=== PATIENT | male | born 1955 | race Caucasian/White ===

== ENCOUNTER 2022-12-12 06:34 | Outpatient (OUT) | payer MEDICARE, OTHER, SELFPAY ==
[2022-12-12 07:28] LABS: Estimated GFR (African America 60 (>=60); Estimated GFR (Non-African Ame 49 (>=60)
--- NOTE | 2022-12-12 08:33 | CT_ITS ---
[address] [address] Patient Name: NIHARIKA OH MRN: [id number] date: 1955 Sex: M Assigned Patient Location: LAB Current Patient Location: LAB Accession/Order Number: [id number] Exam Date: 12/12/2022 08:40 Report Date: 12/12/2022 09:41 At the request of: NON-STAFF PHYSICIAN Procedure: CT abdomen pelvis w con CT abdomen pelvis w con, 12/12/2022 8:40 AM EDT INDICATION: Disorder Of Kidney Left renal mass. COMPARISON: Contrast-enhanced CT scan of the abdomen and pelvis 10/21/2021, 03/15/2021. TECHNIQUE: Axial images of the abdomen and pelvis were obtained after the administration of oral and IV contrast with multiphase imaging. Multiplanar reformatted images were generated and reviewed as needed. Dose reduction techniques were achieved by using automated exposure control and/or adjustment of mA and/or kV according to patient size and/or use of iterative reconstruction technique. FINDINGS: Subsegmental atelectasis/scar within the lingula. No lobar consolidation or effusion. Cholecystectomy. Calcified splenic granulomas. The liver, pancreas and adrenals are unremarkable. Symmetric nephrograms without evidence of obstruction. Right kidney stable in appearance. 2.2 x 2.5 x 1.7 cm dense nodule upper pole the left kidney, previously 2.3 x 2.1 x 2.1 cm. Cyst lower pole the left kidney. No urolithiasis. Delayed imaging demonstrates symmetric excretion into the collecting system bilaterally. Normal course and caliber of the ureters with prompt emptying into the urinary bladder. 3.0 cm urinary bladder diverticulum above the right UVJ, previously 3.1 cm. No urinary bladder wall thickening or perivesicular fat stranding. Central calcifications within a mildly enlarged prostate gland. No aortic aneurysm. No bowel obstruction or acute focal inflammation. Normal appendix. Sigmoid diverticulosis. Right inguinal hernia containing nonobstructed loops of distal ileum. No pneumatosis, pneumoperitoneum or ascites. No mesenteric or retroperitoneal lymphadenopathy. No acute fracture or dislocation. CT/CT abdomen pelvis w con IMPRESSION: 1. Slight interval increase in size of dense mass upper pole of the left kidney. This lesion cannot be fully characterized without concurrent noncontrast scan to assess for enhancement of this nodule. Although this may represent a hemorrhagic cyst, the appearance is concerning for renal cell carcinoma. This may be further evaluated with concurrent pre and postcontrast CT scan with IV contrast in the nephrographic phase or contrast-enhanced MRI. 2. Mild prostatomegaly. 3. Right Hutch diverticulum. No findings to suggest diverticulitis. 4. Sigmoid diverticulosis. 5. Moderate-sized right inguinal hernia. No inflammation within the hernia sac. Electronically authenticated by: BRANDEN KIM Date: 12/12/2022 09:41
== END 2022-12-12 06:35 | disposition home or self-care (01) ==
PROVIDERS: PCP Family Medicine
DX: N28.89 Other specified disorders of kidney and ureter (principal); N40.0 Benign prostatic hyperplasia without lower urinary tract symptoms; K57.30 Diverticulosis of large intestine without perforation or abscess without bleeding; K40.90 Unilateral inguinal hernia, without obstruction or gangrene, not specified as recurrent
CPT/HCPCS: 36415; 74177; 82565; Q9967

== ENCOUNTER 2023-08-24 10:03 | Outpatient (OUT) | payer MEDICARE, OTHER, SELFPAY ==
[2023-08-24 10:45] LABS: Basophils Percent Auto 0.6 % (0.2-2.0); Eosinophils Absolute Auto 0.2 10^3/uL (0.0-0.7); Eosinophils Percent Auto 3.4 % (0.9-7.0); Hematocrit 50.2 % (42.0-54.0); Hemoglobin 16.9 g/dL (14.0-18.0); Immature Granulocytes Abs Auto 0.02 10^3/uL (0.00-0.03); Immature Granulocytes Pct Auto 0.3 % (0.0-0.5); Lymphocytes Absolute Auto 1.4 10^3/uL (1.2-3.8); Lymphocytes Percent Auto 21.9 % (20.5-60.0); Mean Corpuscular HGB Conc 33.7 g/dL (29.9-35.2); Mean Corpuscular Hemoglobin 31.4 pg (25.9-34.0); Mean Corpuscular Volume 93.3 fL (80.0-94.0); Mean Platelet Volume 9.7 fL (9.5-13.5); Monocytes Absolute Auto 0.5 10^3/uL (0.3-0.8); Monocytes Percent Auto 7.3 % (1.7-12.0); Neutrophils Absolute Auto 4.2 10^3/uL (1.4-6.5); Neutrophils Percent Auto 66.5 % (43.0-75.0); Platelet Count 190 10^3/uL (150-450); Red Blood Count 5.38 10^6/uL (4.70-6.10); Red Cell Distribution Width 12.4 % (11.0-15.0); White Blood Count 6.3 10^3/uL (4.0-11.0)
[2023-08-24 11:57] LABS: Estimated Average Glucose 226 mg/dL; Glycohemoglobin A1C 9.5 % (4.5-6.2)
[2023-08-24 14:22] LABS: Chloride 100 mmol/L (98-107); Sodium 136 mmol/L (136-145)
[2023-08-24 14:23] LABS: Alanine Aminotransferase 27 U/L (16-63); Anion Gap 12.5; Aspartate Amino Transferase 17 U/L (15-37); BUN Creatinine Ratio 17.9; Bilirubin Total 0.5 mg/dL (0.2-1.0); Calcium 9.8 mg/dL (8.5-10.1); Carbon Dioxide 27.5 mmol/L (21.0-32.0); Estimated GFR (African America >60 (>=60); Estimated GFR (Non-African Ame 53 (>=60); Glucose 175 mg/dL (74-106); Uric Acid 7.6 mg/dL (3.5-7.2)
[2023-08-24 14:24] LABS: Albumin Level 3.6 g/dL (3.4-5.0); Alkaline Phosphatase 120 U/L (46-116); Cholesterol 150 mg/dL (<=200); Free T3 2.49 pg/mL (2.18-3.98); Globulin 3.7 g/dL; HDL Cholesterol 34 mg/dL (40-60); Total Protein 7.3 g/dL (6.4-8.2); Triglycerides 143 mg/dL (<=150); VLDL CHOLESTEROL 28.6 mg/dL
[2023-08-24 14:25] LABS: Thyroid Stimulating Hormone 3.064 uIU/mL (0.358-3.740)
[2023-08-25 04:07] LABS: PSA, Free 0.68 ng/mL; Prostate Specific Ag 7.8 ng/mL (0.0-4.0)
[2023-08-25 12:09] LABS: Insulin 35.6 uIU/mL (2.6-24.9)
== END 2023-08-24 10:04 | disposition home or self-care (01) ==
LOC: LAB 10:05
PROVIDERS: PCP Family Medicine; Visit Provider Nurse Practitioner Family
DX: E78.5 Hyperlipidemia, unspecified (principal)
CPT/HCPCS: 36415; 80053; 80061; 83036; 83525; 84153; 84154; 84436; 84443; 84481; 84550; 85025

== ENCOUNTER 2023-09-05 14:03 | Outpatient (OUT) | payer MEDICARE, OTHER, SELFPAY | END 2023-09-05 14:04 | disposition home or self-care (01) | LOC: MN 14:05 | PROVIDERS: PCP Family Medicine | DX: E11.8 Type 2 diabetes mellitus with unspecified complications (principal) | CPT/HCPCS: G0108 ==

== ENCOUNTER 2023-11-29 11:02 | Outpatient (OUT) | payer MEDICARE, OTHER, SELFPAY ==
[2023-11-29 12:25] LABS: Estimated Average Glucose 140 mg/dL; Glycohemoglobin A1C 6.5 % (4.5-6.2)
== END 2023-11-29 11:03 | disposition home or self-care (01) ==
LOC: LAB 11:05
PROVIDERS: PCP Nurse Practitioner Family; Visit Provider Nurse Practitioner Family
DX: E11.9 Type 2 diabetes mellitus without complications (principal)
CPT/HCPCS: 36415; 83036

== ENCOUNTER 2024-09-24 10:38 | Outpatient (OUT) | payer MEDICARE, OTHER, SELFPAY ==
--- OUTSIDE RECORDS SUMMARY | 2024-09-24 10:44 | XMS_ITS | CCD ---
Author Organization [facility] Care Team Providers Care Deputy Chief Magistrate Name Role Phone Unavailable Primary Care Provider JUDIT López Consulting Unavailable JUDIT HARMON Primary Care Unavailable JUDIT HARMON Admitting JUDIT Truong Attending Unavailable JUDIT HARMON Primary Care Unavailable AASHISH Portillo, DR RUBY Spann Attending Liset Portillo, DR RUBY Spann Admitting Unavaila ble JERRY, DR CARLOS Robertson Consulting Unavailable AASHISH Portillo, DR RUBY Spann Consulting Unavaila daniel Unavailable Primary Care Provider SHI Moreland Attending Unavail able Allergies Allergy Classification Reported Allergen(s) Allergy Type Date of Onset Reaction(s) Facility (1 source) Haloperidol Drug Allergy 08-05-2014 [facility] Repository Medications Completed/Discontinued Medications Medication Drug Class(es) Dates Sig (Normalized) Sig (Original) Aspirin (5 sources) Platelet Aggregation Inhibitor, Nonsteroidal Anti-inflammator y Drug aspirin (ASPIR-81 OR AL) Take by mouth. 0 Active Comment on above: Take by mouth. hydroCHLOROthiazide 25 mg oral tablet (5 sources) Thiazide Diuretic take 1 tablet by mouth once daily hydroCHLOROthiazide (HYDRODIURIL, ESIDRIX) 25 mg tablet Take 25 mg by mouth once daily. 0 Active Comment on above: Take 25 mg by mouth once daily. levothyroxine sodium 0.075 mg oral capsule (5 sources) l-Thyroxine take 1 capsule by mouth once daily before breakfast levothyroxine 75 mcg cap Take 75 mcg by mouth daily before breakfast. 0 Active Comment on above: Take 75 mcg by mouth daily before breakfast. Lisinopril (5 sources) Angiotensin Converting Enzyme Inhibitor LISINOPRIL ORAL Take 25 mg by mouth. 0 Active Comment on above: Take 25 mg by mouth. 24 hr metoprolol succinate 50 mg extended release oral tablet (5 sources) beta-Adrenergic Aly take 1 tablet by mouth once daily metoprolol succinate ER (TOPROL XL) 50 mg 24 hr tablet Take 50 mg by mouth once daily. 0 Active Comment on above: Take 50 mg by mouth once daily. pravastatin sodium 20 mg oral tablet (5 sources) HMG-CoA Reductase Inhibitor take 1 tablet by mouth once daily pravastatin (PRAVACHOL) 20 mg tablet Take 20 mg by mouth once daily. 0 Active Comment on above: Take 20 mg by mouth once daily. Problems Active Problems Problem Classification Problem Date Documented Da te Episodic/Chronic Hyperplasia of prostate (1 source) Benign prostatic hyperplasia with lower urinary tract symptoms; Translations: [BENIGN PROSTATIC HYPERPLASIA W/LUTS] Onset: 10-22-2021 Chronic Other diseases of kidney and ureters (2 sources) Disorder of kidney and/or ureter; Translations: [Other specified disorders of kidney and ureter] Chronic Other diseases of kidney and ureters (4 sources) Other specified disorders of kidney and ureter; Translations: [OTHER SPEC DISORDERS KIDNEY URETER] Onset: 10-21-2021 Chronic Other screening for suspected conditions (not mental disorders or infectious disease) (1 source) Elevated prostate specific antigen [PSA]; Translations: [ELEVATED PROSTATE SPEC ANTIGEN] Onset: 09-08-2022 Episodic Thyroid disorders (4 sources) Hypothyroidism, unspecified; Translations: [HYPOTHYROIDISM UNSPECIFIED] Onset: 09-05-2022 Chronic Past or Other Problems Problem Classification Problem Date Documented Da te Episodic/Chronic Genitourinary symptoms and ill-defined conditions (3 sources) Other microscopic hematuria; Translations: [Nocturia] Onset: 10-22-2021 Episodic Results Test Name Value Interpretation Reference Range Facility PSA, FREE AND TOTAL RATIOon 09-06-2022 % Free PSA 9.1 % Normal [facility] Comment on above: Result Comment: The table below lists the probability of prostate cancer for men with non-suspicious IAN results and total PSA between 4 and 10 ng/mL, by patient age (Brent et al, CINDY 1998, 279:1542). % Free PSA 50-64 yr 65-75 yr 0.00-10.00% 56% 55% 10.01-15.00% 24% 35% 15.01-20.00% 17% 23% 20.01-25.00% 10% 20% >25.00% 5% 9% Please note: Brent et al did not make specific recommendations regarding the use of percent free PSA for any other population of men. Performed By: #### P SAFREE #### [facility] [address] [place] [address] Dr. Rissa Garcia Prostate specific Ag [Mass/Vol] 6.8 ng/mL Critically high 0.0-4.0 [facility] Comment on above: Result Comment: Soren mayorga ECLIA methodology. . According to the [employer], Serum PSA should decrease and remain at undetectable levels after radical prostatectomy. The AUA defines biochemical recurrence as an initial PSA value 0.2 ng/mL or greater followed by a subsequent confirmatory PSA value 0.2 ng/mL or greater. Values obtained with different assay methods or kits cannot be used interchangeably. Results cannot be interpreted as absolute evidence of the presence or absence of malignant disease. Performed By: #### P SAFREE #### [facility] [address] [place] [address] Dr. Rissa Garcia PSA, Free 0.62 ng/mL Normal N/A [facility] Comment on above: Result Comment: Soren mayorga ECLIA methodology. Performed By: #### P SAFREE #### [facility] [address] [place] [address] Dr. Rissa Garcia FREE THYROXINE INDEX T7on FTI 3.29 Normal 1.30-4.50 [facility] Comment on above: Performed By: #### T 7, TSH #### [facility] [address] [place] [address] Dr. Rissa Garcia T3U 35.0 % Normal 33.0-40.0 [facility] Comment on above: Performed By: #### T 7, TSH #### [facility] [address] [place] [address] Dr. Rissa Garcia T4 [Mass/Vol] 9.40 ug/dL Normal 4.50-12.10 [facility] Comment on above: Performed By: #### T 7, TSH #### [facility] [address] [place] [address] Dr. Rissa Garcia TSHon 09-05-2022 TSH 0.987 uIU/mL Normal 0.358-3.740 [facility] Comment on above: Performed By: #### T 7, TSH #### [facility] [address] [address] [address] Rissa Garcia Lab Reportson 10-27-2021 Lab Reports [id number] D:127 Normal [facility] RAD - CT Reporton 10-27-2021 RAD - CT Report [id number] D:127 Normal [facility] CREATININEon 10-21-2021 Creatinine [Mass/Vol] 1.49 mg/dL Critically high 0.70-1.30 [facility] Comment on above: Performed By: #### C ERLINDA #### [facility] [address] [place] [address] Dr. Rissa Garcia EGFR-AF BERMUDIAN 57 mL/min/1.73m2 Critically low >=60 [facility] Comment on above: Performed By: #### C ERLINDA #### [facility] [address] [place] [address] Dr. Rissa Garcia EGFR-NON AF BERMUDIAN 47 mL/min/1.73m2 Critically low >=60 [facility] Comment on above: Performed By: #### C ERLINDA #### [facility] [address] [place] [address] ABD/PELV W CONon 10-22-19 CT ABD/PELV W CON EXAMINATION: CT ABD/PELV W CON HISTORY: Disorder of kidney and/or ureter ; follow-up left renal cyst versus mass COMPARISON: CT abdomen pelvis 03/15/2021 TECHNIQUE: Axial, Coronal, and Sagittal images were created with IV contrast. Dose reduction techniques were achieved by using automated exposure control and/or adjustment of mA and/or kV according to patient size and/or use of iterative reconstruction technique. FINDINGS: LUNG BASES: No visible pulmonary or pleural disease. LIVER: No enlargement, atrophy, suspicious density, or significant focal lesion. BILIARY: No dilatation or calcification. PANCREAS: No lesion, fluid collection, or abnormal duct dilatation. SPLEEN: No enlargement or focal lesion. ADRENALS: No mass or enlargement. KIDNEYS: 2.3 x 2.1 x 2.1 cm heterogeneously enhancing round mass within the superior pole of left kidney. Unremarkable right kidney and bilateral ureters. BOWEL/MESENTERY: Diverticulosis of sigmoid colon without acute inflammatory changes. No visible mass, obstruction, or bowel wall thickening. Normal appendix. AORTA/VASCULAR: No aneurysm or dissection. RETROPERITONEUM: No mass or adenopathy. LYMPH NODES: No adenopathy. URINARY BLADDER: 3.1 cm diverticulum projecting from the posterior right wall. No visible focal wall thickening, lesion, or calculus. PELVIC ORGANS: No visible mass. Pelvic organs appropriate for patient age. ABDOMINAL WALL: Large right inguinal hernia containing nonstrangulated and nonobstructed small bowel and mesenteric fat, 7.1 x 7.2 x 4.7 cm. BONES: Heterogeneous appearance of the femoral heads bilaterally suggestive of osteonecrosis. OTHER: Negative. IMPRESSION: 1. No significant change in size or appearance of the left kidney superior pole mass versus complex cyst. Renal cell carcinoma is favored given its appearance. CT imaging of the kidneys without and with contrast may be beneficial to evaluate degree of enhancement. MRI of the kidneys without and with IV contrast, or ultrasound evaluation to evaluate for vascularity could also be performed. Otherwise, biopsy should be considered. Electronically authenticated by: CARLOS EDWARDS Date: 2021-10-21 16:45 Normal [facility] Reminderson 10-18-2021 Reminders - From: Josephine Maynard To: JOE Zendejas; Sent: 05/11/2021 11:41:36 EST Show up: 10/09/2021 12:41:00 EDT Subject: Ct a/p with contrast Reminder Message 6m CT a/p with contrast- renal protocol for Left renal mass Order created and sent to [facility]. Patient has a CT scan scheduled with [facility] on 10/31/2021. Will obtain the report from this CT once completed. Normal [facility] Consultation Noteon 07-13-19 Consultation Note [id number] D:127 Normal [facility] Lab Reportson 07-12-2021 Lab Reports [id number] D:127 Normal [facility] Urology Progress Noteon 05-08 Urology Progress Note Problems Ongoing BPH with urinary obstruction Elevated PSA Frequency of urination Microhematuria Nocturia Smoker Historical No qualifying data Procedure/Surgical History Transrectal biopsy of prostate using ultrasound (US) guidance (08/25/2016), Arthroscopy of knee (05/08/2013), Cholecystectomy. Medication List aspirin 81 mg oral capsule, 81 mg= 1 cap(s), Oral, q4hr hydrochlorothiazide 25 mg oral tablet levothyroxine 75 mcg (0.075 mg) Tab lisinopril 20 mg Tab Metoprolol tartrate 50 mg Tab pravastatin 20 mg Tab Allergies haloperidol (Chest tightness) Goals and Interventions Care Plan Patient has a history of a 2.4 cm renal mass. Initially we will plan to repeat a CT scan 6 months after his last visit and then consider possible biopsy of this mass. Since the last visit I changed my perspective and would prefer to proceed with a percutaneous needle biopsy of this renal cortical mass. I put a phone call into the patient and left a message. My staff will contact the patient as well and help make arrangements for percutaneous needle biopsy of this cortical renal mass with interventional radiology at [facility]. Normal [facility] Lab Reportson 05-11-2021 Lab Reports [id number] D:127 Normal [facility] Patient Educationon 05-11-19 Patient Education Oncology Prostate-Specific Antigen Test Why am I having this test? The prostate-specific antigen (PSA) test is a screening test for prostate cancer. It can identify early signs of prostate cancer, which may allow for more effective treatment. Your health care provider may recommend that you have a PSA test starting at age 40 or that you have one earlier or later, depending on your risk factors for prostate cancer. You may also have a PSA test: ? To monitor treatment of prostate cancer. ? To check whether prostate cancer has returned after treatment. ? If you have signs of other conditions that can affect PSA levels, such as: ? An enlarged prostate that is not caused by cancer (benign prostatic hyperplasia, BPH). This condition is very common in older men. ? A prostate infection. What is being tested? This test measures the amount of PSA in your blood. PSA is a protein that is made in the prostate. The prostate naturally produces more PSA as you age, but very high levels may be a sign of a medical condition. What kind of sample is taken? A blood sample is required for this test. It is usually collected by inserting a needle into a blood vessel or by sticking a finger with a small needle. Blood for this test should be drawn before having an exam of the prostate. How do I prepare for this test? Do not ejaculate starting 24 hours before your test, or as long as told by your health care provider. Tell a health care provider about: ? Any allergies you have. ? All medicines you are taking, including vitamins, herbs, eye drops, creams, and eejp-nrx-fbefure medicines. This also includes: ? Medicines to assist with hair growth, such as finasteride. ? Any recent exposure to a medicine called diethylstilbestrol. ? Any blood disorders you have. ? Any recent procedures you have had, especially any procedures involving the prostate or rectum. ? Any medical conditions you have. ? Any recent urinary tract infections (UTIs) you have had. How are the results reported? Your test results will be reported as a value that indicates how much PSA is in your blood. This will be given as nanograms of PSA per milliliter of blood (ng/mL). Your health care provider will compare your results to normal ranges that were established after testing a large group of people (reference ranges). Reference ranges may vary among labs and hospitals. PSA levels vary from person to person and generally increase with age. Because of this variation, there is no single PSA value that is considered normal for everyone. Instead, PSA reference ranges are used to describe whether your PSA levels are considered low or high (elevated). Common reference ranges are: ? Low: 0?2.5 ng/mL. ? Slightly to moderately elevated: 2.6?10.0 ng/mL. ? Moderately elevated: 10.0?19.9 ng/mL. ? Significantly elevated: 20 ng/mL or greater. Sometimes, the test results may report that a condition is present when it is not present (false-positive result). What do the results mean? A test result that is higher than 4 ng/mL may mean that you are at an increased risk for prostate cancer. However, a PSA test by itself is not enough to diagnose prostate cancer. High PSA levels may also be caused by the natural aging process, prostate infection, or BPH. PSA screening cannot tell you if your PSA is high due to cancer or a different cause. A prostate biopsy is the only way to diagnose prostate cancer. A risk of having the PSA test is diagnosing and treating prostate cancer that would never have caused any symptoms or problems (overdiagnosis and overtreatment). Talk with your health care provider about what your results mean. Questions to ask your health care provider Ask your health care provider, or the department that is doing the test: ? When will my results be ready? ? How will I get my results? ? What are my treatment options? ? What other tests do I need? ? What are my next steps? Summary ? The prostate-specific antigen (PSA) test is a screening test for prostate cancer. ? Your health care provider may recommend that you have a PSA test starting at age 40 or that you have one earlier or later, depending on your risk factors for prostate cancer. ? A test result that is higher than 4 ng/mL may mean that you are at an increased risk for prostate cancer. However, elevated levels can be caused by a number of conditions other than prostate cancer. ? Talk with your health care provider about what your results mean. This information is not intended to replace advice given to you by your health care provider. Make sure you discuss any questions you have with your health care provider. Document Released: 05/27/2005 Document Revised: 04/06/2018 Document Reviewed: 01/29/2018 [employer] Patient Education ? 2019 [employer] [facility] Urology Office/Clinic Noteon 05-11-2021 Urology Office/Clinic Note Chief Complaint Patient in office for f/u to Cysto and PSA HPI Staff Patient in office for 1 month f/u to Cysto done on 04/15/21. Patient states he has been doing well since the procedure. Patient's previous PSA was done on 03/03/21 w/a result of 7.45. Most recent PSA was done on 04/12/21 w/a result of 6.6. Dysuria: denies Incomplete bladder emptying: denies Hematuria: denies Frequency: denies Urgency: denies Nocturia: 3-4 x a night Stream: steady Leaking: denies Post void dripping: denies Wearing pads/ Depends: denies Urge incontinence: denies Stress incontinence: denies Incontinence without Sensory Awareness: denies Abdominal pain: denies Flank pain: denies Sexual complaints: _ History of Present Illness reviewed medical history, cysto report, PSA, UA no associated fever, chills, pain or blood Review of Systems ROS - Provider Constitutional: denies weight loss, denies hot flashes. Eyes: denies eye problems. Gastrointestinal: denies nausea, denies vomiting. Cardiovascular: denies chest pain or angina. Integumentary: no dryness Musculoskeletal: denies musculoskeletal symptoms. ENMT: denies otolaryngeal symptoms. Respiratory: no shortness of breath. Heme/Lymph: denies easy bleeding tendency, denies easy bruising tendency. Psychiatric: no confusion, no anxiety. Genitourinary: denies dysuria, denies hematuria, denies discharge, denies urinary frequency, denies urinary hesitancy, moderate nocturia, denies incontinence, denies genital sores, denies decreased libido, and denies erectile dysfunction. Physical Exam Vitals & Measurements HR: 74(Peripheral) BP: 122/80 WT: 119.0 kg WT: 119 kg General Appearance: alert, no distress, well nourished, well developed male. Genitourinary: normal scrotum, normal testes, normal urethra, normal epididymis, normal vas deferens/spermatic cord. Flank Pain: none. Bladder: nonpalpable. Prostate: normal prostate, estimated weight 35 gms, no hard nodule observed. Assessment/Plan This patient is here to review the results of his hematuria work-up. His cystoscopic examination showed moderate prostatic hyperplasia and severe bladder trabeculation. No mucosal lesions were identified. Urine cytology was negative for malignancy and a CT scan showed a 2.4 cm left cortical renal mass. This mass will be evaluated with a follow-up CT scan in 6 months. We discussed the possibility of performing a needle biopsy versus monitoring the mass with another CT scan. This point we will repeat the CT scan in 6 months consider needle biopsy of the mass changes in characteristics. We discussed the possibility of this mass being a carcinoma versus being a benign cortical mass. We discussed the possibility of surgery to remove the mass versus a total nephrectomy if biopsy is performed and shows evidence of malignancy. 1. Microhematuria (R31.29: Other microscopic hematuria) s/p cysto done 04-15-21. UA today shows TRACE. Urine Cytology negative. 2. Renal mass (N28.89: Other specified disorders of kidney and ureter) Ct a/p with done 03-15-21 shows 2.4cm Left renal cortical mass. will repeat CT scan in 6 months and closely monitor. Discussed with patient if the mass grows/changes then will move further with treatment options and discussions. patient is in agreement with this plan. 3. Elevated PSA (R97.20: Elevated prostate specific antigen [PSA]) most recent PSA done 04-12-21 6.6 which is down from 7.45 drawn 03/03/21. s/p Trus with biopsy done 08/25/16. Ordered: Urnls Dip Stick Auto w/o Microscopy POC 23897 4. BPH with urinary obstruction (N40.1: Benign prostatic hyperplasia with lower urinary tract symptoms) patient gets up 3-4x per night, this has been ongoing for awhile. good urinary stream. patient is not currently on any BPH medications at this time. Ordered: Urnls Dip Stick Auto w/o Microscopy POC 70503 5. Smoker (Z72.0: Tobacco use) Discussed smoking cessation. Follow-up With When Contact Information Aashish Barnes MD, TOM Pugh In 6 months 11/08/2021 EDT [facility] [address], [place] [address]- Additional Instructions: w/ CT Patient Education Prostate-Specific Antigen Test Josephine Guerrero, personally scribed for Dr. Zendejas on 05/11/2021 11:43:54. . Documentation recorded by the scribJosephine mayorga, accurately reflects the services(s) I performed and decisions made by me. Authenticated by Dr. Zendejas on 05/11/2021 11:52:26. Problem List/Past Medical History Ongoing BPH with urinary obstruction Elevated PSA Frequency of urination Microhematuria Nocturia Smoker Historical No qualifying data Procedure/Surgical History Transrectal biopsy of prostate using ultrasound (US) guidance (08/25/2016), Arthroscopy of knee (05/08/2013), Cholecystectomy. Medications aspirin 81 mg oral capsule, 81 mg= 1 cap(s), Oral, q4hr hydrochlorothiazide 25 mg o (more content not included)... Normal [facility] Comment on above: Result Comment: Elec tronically Signed By: Aashish Barnes MD, Ruby Spann\.br\Date and Time Signed: 05/11/21 11:52 EST\.br\Electronically Co-Signed By: Josephine Maynard\.br\Date and Time Co-Signed: 05/11/21 11:44 EST Coding Summary.on 04-19-2021 Coding Summary. [id number] Gh0 bWw+PGhlYWQ+NU8NAHOaP46 bmLGpyA1AV3cVZS2CMTDRLC SDHW3PSO2stTY0EHseG1Ltr iAv QzcwiDRbUR90YNt6FDH4wDh tPJynwP0coJRgX8i0JmMoII 54tO82JKyyWMGdRfB9UgCcd jsgbWFy Z0ibMfNgnWCtVfm+PHRhYmx lIHdpZHRoPScxMDAlJyBzdH wfRO0yRn1aLVBcFXWynUqzv HNlOiBj k7gaHUSiXJomCX7qgFswK2I qgHE1MEBrz1n3Ah11sMH+PH SzDNU9pPwmIAxcq461VaEit 5arTSA8 hRYbCSdyRHE9J94rs2E8AJZ lJOKeGDG6dTF8fM2seQnsls mwP6YfiLPsMnE6EAA7zVKgj N4tdIki ieqwrL2vLpx+J73BJV8JEPG EHS6NXfm2X9HtMjlerRX+PC 73TWBpGJ42tYOwvGKsc9qdp Lq8GtQl DMGnGBE0oCfkZTnhb5BlNCA sV43rcOGkd9G4POLtyBbnzQ CnGmEabVI7rF2oKGvhxbpnc 2hvdzsn Scdzv1bqus14uO47V06lYRx sZVAgQLH6WRSuGYKjkLwzil 0czF0mPd0+YYaxs0knp6ilm Vn8SfOk SHEvmyUyxCfoQKN1b6KvQj4 6S1LvbExwl9RtBic6pl54lR Qtz0R1fQI6BWntDDJltH0rZ WxlZnQ6 THOjRpFokH50yWQsAAscTp1 qoIhjkDoqLY3yGARfjrrnLG VwbD5aKQGbiASrpRciRR3zM TBpbjtm m824RpTuHQU8TBTdfOMeZ3K zvB8xMxGzEZMtIAJjS5QnwI XrXNzrY015HJzeTcT2QSUvw eDxF4Ok RMXlrGklOzZ8i9V1Xt3Rl0E ynpbzZLA6SKdoKWLaSyQdKl BfUnM2U0JeTty9TYYmpGppD O8bZ9Cz UCYoohnoqxyjyOU0HUGkFRK liP28iIMbGZbhSu6xe9O1i2 90WFWwDQAusL02Kv5vlYonQ TBwdCBU aL7vpssts9sgieyhLdWmJUN bOZv7BUn1TKWtaYoqRhGxCC O5ViK0RWX6oJPgwA8whXjds vdjyT2b Oyc+Y92qfX4uMGX3ZWW2dyw dSOIpcfPfBW90YF65A3MfEm wvdGFibGU+PGRpdiBzdHlsZ Q5wZdIw e2tqn1UdNGqhD3NrFBLlAXk zOrm3VRUpTKP3rRD0cH8fRB LvEYpvv9R7wIB1F1MfshVui s7qa9zc DOQmYPcsM80rrYSck5M2UFA ucDC8AYOktJeiAaWnrL91Lk c+ODTajJdlx4NfYkhtp6bbm 9hnlUd6 BxStYHIbxiPzfHukBJJ2m8P pVz30O71uDNftWIPpEXAvAE PcXXIcgNxdjb6neM8lLj5+P GNvbCB3 bJQ5gF0xJIUxEoJ1PYbcA35 9WuOjxWAbXmgrq7pbr5yxvM r4PjKnPAWkfoLlnBgqZTP4l 1ZmUt20 M02rYIkgPHBjOKViNGDvPUN vxDeafd2dkX6gIb1+PC9jb2 kluf06jQ03xDZ+WPKjCNX1r WxlPSdw QQMvsF2cDBzrTgR0CMPyLsA npI85bSDfXJuoBr5spGirzW dzCL5bEIEtquvrz634UvTdt 2xkIDEw kUPtSWctZGE2B00th5I9DNA pLEMsMEY0cCP3lO6poOcorx ogbGVmdDsgdmVydGljYWwtY QcyK108 IHRvcDsnPlBhdGllbnQgTmF nQDo9N3RoXds6KFCwdWrrTM 0otMQlAHxpOp8ylSmuvEdtE Y5cEAGt jfpys159WtNea5wmCXRosTK nYWnjSLV7U51ye3O5YXBjYM NyBJY8eIS3vF3diPzmkhlce GVmdDsg ugYoyNfaJAouSJjrU427YGY mqXrlIzVqjgRjPQNwrQG5CX 47YN19oQRzn2V4oVB3P9QlW GRpbmct ruanrVB5YSPpGSGvkA30Cv4 naSbqPu9pOPCyLDO9LFBqqY HkD1JsuY7oRwCqGLTfXTSuM 3RleHQt PWhwD831ZBzyCtO5ZFQezdJ qL1MlVDSubRgxThN3o8T7Fp 6UZ4O6JI55JF37rYOcc5Y1d HF1D5Ld EHNbbovkvfohiEL0SNAiIIN xgC79Ua6qeCgeMj8eQTCzHE Q8KRPuxESmM7ThaB0tJgNlC DAwMDAw K5NkvPVtTQkfT216PFvjZeC 6IGGemrAbG7IxEIBrkOleXq T8i8M7Au0SCMm5TI99AG35z RVmp7R1 hAN7K5KbTEKzwtemfxuqwEW 7GIErWTWgkA32Hj0orYmfDk 5nTKGzHRC1MLEigLYwQ3Pst W8yTwGt SSMgJHDxK4HwcDPoVCvzQ28 0YDsgPhI7SDBwqxJjL4TwYO PxoFovFqF5i0S1Ju3KCNBvH X46SAG4 nGU4MU89SJ57P9AnWojpfEV ibGU+PHRhYmxlIHdpZHRoPS bkSRHvHnEtkSuqOR8kRs3fK GVyLWNv fLcenSXiXtDhi6bcHYBuILc xDJ3oxRboI5ZlmOP2XNDlc9 l5Fl22Z49pR3UpkNP+PGNvb UP3mJI3 lR0hVyTnWfB2LItzN847KuZ fdQIaZbbhi4lpv0rtqQn5Xw B4ZWYcpdTovQnwIAH6v2GiB y09D47x IHdpZHRoPSIxNSUiIHZhbGl fev1dmO3pVo0+EJTklIL6lR A9lF5gPqQdLfU7ASsxO069G nRvcCIv Osefe1cca1nicTt1ToOsEUJ prmJqnNqtHNP1w1RpYb19B0 AoqElho8EkHbo7kf38gOZvo 4W9vCF5 K4AnUBUmajoheJBrxGamFM1 bVIFcumvrDHBiqM1uLDOiP3 e6GrWyUyR9RKonQ2DhobM6A DEwcHQg TGjsGEZ9D83nl4W6JEZbENZ lOZL4iMR7dQ4mcCbphiwzhC VmdDsgdmVydGljYWwtYWxpZ 246IHRv iMssZUOarG8tIDHxfEBoeOv zRN1jOQYiucuiEa6WOY1ZJ7 lXOVMOMVEFSAXOJV60GB03f QWip1O2 fKJ4Y3JjDSRkwjooplqhuYF 9NIPmADMgxM53tTPzMSrlBv 3qf3D8q103MFNnVWMewY54U c9amHqn QEDwvPQToO7tjblim2pvdbj iTeCzATPsDEz5HZh7NMAuqY sqTaJaJDF7SoQ8UID8zOAsg V5jrZnp htanbG8oDbx+MTAvMDIvMTk 1MzwvdGQ+XVPuRXN6nRipBT dzZXBjkQ1yFTMpC8h8TmSsS vB8GGgw Z2XpKIUyzrhmTd69zJ1aFzW wOvI4IZimH6SfbxP3YLXjnM TnDMvkYDW7L79de6X9FQFrE DAwMDA7 eIF8eA7nbRflmbwmpHLpyFj ooaXviNkxQVvbUKdgL573HD KbiLfmAfQ3HJfnHHRmPC04C O49mABl s8T7xRJ4G7OoBWAsptqmlea whAG8GYVoMPUksJ46tNSnHH vuOm7ah2E1a139TDDfNIUrx O68Wk4q iPsgBCPgjLXAgA1mmtqoh3v zstrrYaDoBGPjSBa8JUs9NT ObyRwnOdAcCBJ2CzO9MFH3k HPojU4y aTdnefvcgT4jVsw+TWFsZTw vdGQ+PARgIYW3oEozHYhcDJ HljD6hXHVaO4z0PrCnCxS0Z QawS9Fp DLXafyfsVr74yJ9fDxYfOjY 9BIscP0OyblY7PMSopNCbFE wwHIC8Z62ga7R4OLZuAAMmR IK5zCP3 iP8erZfyigjzcHCxoTouzpF itZtkCQxxWBqyY609ZOMkvE qeKw85vYPccAxlvkG0U9ZzH jwvdHI+ ZK94FYUjTM29rRKgxXIav9z wwUm8JkFqJFBoYXF4oYxxYV bht9EzKFIkM24esYCde8H7E GNvbGxh kRHzSpDiqMO0hX2qVLgjmfy pr4wdcxusRjdcj2gmdk23eK 55N65aBNkrCQYsRTGzEQXjC HZhbGln jf5kbN6sOf0+KKEahZI3vEC 5kC6xGcNwCpN6CQlmT143Ie AunKXqHddgf2rbg8rjyAf2I jIwJSIg ocDhgWdnGLY8i9RoTv92A11 sIHdpZHRoPSIyMCUiIHZhbG xmhd1jlS1uZo2+YW9mj7pkp g00bK56 dHI+DRHvLBU4bBrwLOgrRXX wvT0mFGwgXhT9XZAcQmQuqY 01tLBlLQsoWt7vxMkwxUzeO J1uPHFf tltvl331JbQhk5joGRRcuLA cGCzyOCL5D16ff8H1EMKlAY FvMPY5wKY1cR8uuMntzacwt GVmdDsg lhEigSseGJdiATmnJ913EZP opLrcVvSmnWBmN0exckJHVN 1lOjwvdGQ+OOJqGVR7cDtwW SdwYWRk kZ1iPEShS3r3ZdWiVuZ5CIq uV5IqczG2VKFckASzJKMooX ECuP3emzybf8mhaengJfRwG DAwMDt0 NPd3GJPrtUsuDoIcFSA4MuU 3VCU6jHUqcE5zuRgsomleeP 9wOyc+RklOOjwvdGQ+PHRkI OC7oGtg KDlvWRYogS2zXAUyQ4u5FlV bZdN2MIveV0ViraA8QBCyzE GeILOtwBEDnY6tbjhzr7hin jogIzAw ETVmJOo7QEv8VPSrxXiwZsY bDDN2FxF1WWD1mFRbaB2lsO mnhogpjW3nFep+TVJOOjwvd GQ+PHRk JFC0rOfkFZxtRPXqfB0sHUC vA3r8ErMvYlW3NYkwO6Dxes T1OKGxtPMiBENvxIQRrL3cz bjzs6wv vbvqMyGrDPQtCBq7LXj6MJS hmZjsPoIoPOC9NrS9VEK6nI QlgG9wtEdmsgrjjA6eHir+U UA4VVF5 HB84RP72A0XuPwklmBPfjVF +PHRhYmxlIHdpZHRoPScxMD UdLvKhzRexMX8jVj4jXHQnV WNvbGxh cHNl (more content not included)... [facility] Consent for Procedure/Surger yon 04-15-2021 Consent for Procedure/Surgery [id number]#[id number] CD:[address] [facility] Consent for Treatmenton 12-0 Consent for Treatment [id number] D:[address] [facility] Discharge Instructionson Discharge Instructions [id number] CD:[address] [facility] IntraOperative Documentson 1 06-16-2020 IntraOperative Documents [id number] CD:[address] [facility] Main OR Intraoperative Recor don 04-15-2021 Main OR Intraoperative Record IntraOp Document Type FTURO Summary Primary Physician: Ruby Zendejas Jr., MD Finalized Date/Time: 04/15/21 10:34:25 Pt. Name: SHABBIRMorganCARROLL D.O.B./Sex: 1955 Male Med Rec #: [id number] Physician: Ruby Zendejas Jr., MD Financial #: [id number] Pt. Type: O Room/Bed: / Admit/Disch: 04/15/21 08:28:57 - Institution: Case Times FTURO Entry 1 Patient Times In Room 04/15/21 10:20:00 Out Room 04/15/21 10:39:00 Procedure Times Start 04/15/21 10:28:00 Stop 04/15/21 10:34:00 Anesthesia Times Last Modified By: FAITH Phillips RN, Ruthann 04/15/21 10:33:24 Case Attendance FTURO Entry 1 Entry 2 Entry 3 Case Attendee Aashish Barnes MD, Ruby Phillips RN, CNOR, Hernando SUMNER, Amna Rodriguez Role Performed Surgeon - Primary Vice President Quality Assurance - Primary Scrub - Primary Time In 04/15/21 10:20:00 04/15/21 10:20:00 04/15/21 10:20:00 Time Out 04/15/21 10:39:00 04/15/21 10:39:00 04/15/21 10:39:00 Procedure CYSTOSCOPY LOCAL(.) CYSTOSCOPY LOCAL(.) CYSTOSCOPY LOCAL(.) Comments Last Modified By: Alan BOYKIN, FATUMAOR, FATUMA Phillips RNOR, FAITH Phillips RN, Ruthann 04/15/21 Jennifer 04/15/21 Jennifer 04/15/21 10:34:06 10:34:06 10:34:06 Surgical Procedures FTURO Entry 1 Procedure Description Procedure CYSTOSCOPY LOCAL Modifiers . Surgeon Description cysto Primary Procedure Yes Primary Surgeon Aashish Barnes MD, Ruby Spann Start 04/15/21 10:28:00 Stop 04/15/21 10:34:00 Anesthesia Type Local Surgical Service Urology Wound Class 2 - Clean-Contaminated Last Modified By: FAITH Phillips RN, Ruthann 04/15/21 10:34:08 General Case Data FTURO Pre-Care Text: Classifies surgical wound, implements aseptic technique, initiates traffic control Entry 1 Case Information OR URO 1 FT Case Level None Wound Class 2 - Clean-Contaminated Specialty Urology Preop Diagnosis BPH W/ LUX, HEMATURIA Postop Same As Preop No Postop Diagnosis BPH W/ LUX, bladder Outcomes Met? Yes diverticulum Last Modified By: FAITH Phillips RN, Ruthann 04/15/21 10:33:12 Post-Care Text: The patient is free from signs and symptoms of infection EU IntraOp - FTURO Pre-Care Text: Implements protective measures prior to operative or invasive procedure, confirms identity before the operative or invasive procedure, verifies operative procedure, surgical site, and laterality Entry 1 EU Perioperative Protocols Procedure(s) CYSTOSCOPY LOCAL(.) Patient Identity Birthday, ID Band Verified (select at Check, Patient least 2): Participation Consents / H and P HandP, Surgery/Procedure Operative Site N/A Verified Consent Marking Verified Surgical Site Yes Laterality Verified n/a Verified Procedure Verified Yes Correct Patient Yes Position Verified Availability Equipment, Implant, Time Out Aashish Barnes MD, Ruby Spann, Verified (If Medication Participants Alan BOYKIN, FATUMAOR, Applicable) Hernando Rodriguez CST, Barbara S Time Out Complete 04/15/21 10:25:00 Allergies Reviewed? Yes Allergies Reviewed Self/Patient With Body Position Supine Prep Area penis Prep Agents Betadine Solution Skin. Condition Unable to Visualize Additional None Specimens Collected Vitals - EU Blood Pressure 149/85 Pulse 73 bpm Respirations SPO2 EBL 0 IandO - EU Total Intake 0 mL Total Output 0 mL Outcomes Met? Yes Last Modified By: FAITH Phillips RN, Ruthann 04/15/21 10:26:04 Post-Care Text: The patient is free from signs and symptoms of injury caused by extraneous objects Sign Out FTURO Entry 1 Before Patient Leaves OR Nurse verbally Yes Nurse verbally n/a confirms with the confirms with the team the name of team that the procedure(s) instrument, sponge, recorded and needle counts are correct (or N/A) Nurse verbally n/a Nurse verbally n/a confirms with the confirms with the team how the team whether there specimen is labeled are any equipment (including patient problems to be name), if applicable addressed Sign Out Complete 04/15/21 10:34:00 Last Modified By: FAITH Phillips RN, Ruthann 04/15/21 10:34:21 Case Comments Finalized By: FAITH Phillips RN, Ruthann Document Signatures Signed By: FAITH Phillips RN, Ruthann 04/15/21 10:34 Normal [facility] Main OR Preoperative Recordo n 04-15-2021 Main OR Preoperative Record Holding Area Document Type FTURO Summary Primary Physician: Ruby Zendejas Jr., MD Finalized Date/Time: 04/15/21 10:24:47 Pt. Name: CARROLL [place] /Sex: 1955 Male Med Rec #: [id number] Physician: Ruby Zendejas Jr., MD Financial #: [id number] Pt. Type: O Room/Bed: / Admit/Disch: 04/15/21 08:28:57 - Institution: Case Times Holding FTURO Pre-Care Text: Verifies consent for planned procedure, identifies individual values and wishes concerning care, includes family members in perioperative teaching Secures patient's records' belongings, and valuables, maintains patient's dignity and privacy, and maintains patient confidentiality Entry 1 In Holding 04/15/21 08:46:00 Outcomes Met? Yes Last Modified By: Gianfranco Lopez LPN 04/15/21 08:46:42 Post-Care Text: The patient participates in decisions affecting his or her perioperative plan of care The patient's right to privacy is maintained Surgery Checklist FTURO Entry 1 Patient Birthday, ID Band Procedure History and Physical, Identification: Check, Patient Verification: Surgical Consent, With Participation Patient NPO after Midnight: n/a Personal Items: Glasses Personal Items glasses Complaints of Pain: No Comment: Skin Integrity Unable to Visualize Vitals - EU Blood Pressure 149/85 Pulse 73 bpm Respirations 16 br/min SPO2 RN Reviewed Yes Last Modified By: FAITH Phillips RN, Ruthann 04/15/21 10:24:45 General Comments: Temp 36.1 Finalized By: FAITH Phillips RN, Ruthann Document Signatures Signed By: Gianfranco Lopez LPN 04/15/21 08:49 Gianfranco Lopez LPN 04/15/21 08:49 FAITH Phillips RN, Ruthann 04/15/21 10:24 Normal [facility] Operative Reporton 1 Operative Report Patient: CARROLL [place] Age: 66 years Sex: Male : 1955 Associated Diagnoses: None Author: Ruby Zendejas Jr., MD Procedure Operative Information Details: Date/ Time: 04/15/2021 10:37:00. Pre-Op Dx: Micro Hematuria - Asymptomatic - R31.21. Post-Op Dx: Same. Anesthesia Type: Local. Procedure: Local Cystoscopy. Complications: None. Risks/Benefits/Informed Consent: Surgical risks, benefits, details of the procedure have been explained to the patient, Full informed consent has been obtained. Intraoperative Information Prepped: Patient is brought back to the endoscopy suite, Patient is placed in supine position, Patient prepped in the usual fashion with Betadine solution, 2% Xylocaine Jelly is placed per Urethra, After waiting several minutes the Cystoscope is introduced. The Urethra is: Normal. The Prostatic Urethra is: Moderate Hypertrophy. The Bladder is: Normal, Trabeculated (Severe (3), Diverticulum was noted in the right bladder wall.), Bladder diverticulum was noted on the right side lateral to the trigone area. There were no mucosal abnormalities associated.. The ureteral orifices: Show efflux of clear urine. Devices Implanted: None. Removal: Cystoscope is removed, The patient tolerated it well. Postoperative Information Discharge: Patient is discharged home with antibiotic coverage, Follow up arranged. Normal [facility] Comment on above: Result Comment: Elec tronically Signed By: Aashish Barnes MD, Ruby Spann\.br\Date and Time Signed: 04/15/21 10:39 EST [facility] 04-13-2021 Lab Reports [id number]#1.00C D:127 Normal [facility] Lab Report[facility] 04-09-2021 Lab Reports [id number]#1.00C D:[address] [facility] Reminderson 04-08-2021 Reminders - From: Paige Campbell MA To: EU - Clinical; Sent: 03/09/2021 14:08:32 EDT Show up: 03/23/2021 13:08:00 EST Subject: Cytology Reminder/Recall Cytology sent to [facility] having to resolve issue, not able to review results. printed off on [facility], scanned into PT chart [facility] Report[facility] 03-17-2021 Lab Reports [id number] D:127 Normal [facility] RAD - CT Reporton 03-16-2021 RAD - CT Report [id number] D:127 Normal [facility] Urine Cytology ([facility])on 05-11-2020 Urine Cytology Diagnosis Info Invalid Interpretation Code [facility] Comment on above: Result Comment: A:Ur ine,Urine:Voided Interpretation - Adequate but limited MicroScopic Description - Adequacy - Adequate but limited Gross Description Site ID:A color Jones fixative Alcohol Specimen designated Urine received in alcohol preservative and labeled with the patient?s name, consists of 70ml clear peach fluid. One non-secondary social studies teacher cytology slide prepared. Electronically signed by : on: 03/11/2021 15:15:42 Performed By: #### 1 [id number] ####[facility] [address] [place] [address] Ambulatory Clinical Summaryo n 03-09-2021 Ambulatory Clinical Summary {[id number]}CD:[id number] Normal [facility] Ambulatory Clinical Summary {[id number]}CD:[id number] Normal [facility] Patient Educationon 03-09-20 Patient Education Urology Benign Prostatic Hyperplasia Benign prostatic hyperplasia (BPH) is an enlarged prostate gland that is caused by the normal aging process and not by cancer. The prostate is a walnut-sized gland that is involved in the production of semen. It is located in front of the rectum and below the bladder. The bladder stores urine and the urethra is the tube that carries the urine out of the body. The prostate may get bigger as a man gets older. An enlarged prostate can press on the urethra. This can make it harder to pass urine. The build-up of urine in the bladder can cause infection. Back pressure and infection may progress to bladder damage and kidney (renal) failure. What are the causes? This condition is part of a normal aging process. However, not all men develop problems from this condition. If the prostate enlarges away from the urethra, urine flow will not be blocked. If it enlarges toward the urethra and compresses it, there will be problems passing urine. What increases the risk? This condition is more likely to develop in men over the age of 50 years. What are the signs or symptoms? Symptoms of this condition include: ? Getting up often during the night to urinate. ? Needing to urinate frequently during the day. ? Difficulty starting urine flow. ? Decrease in size and strength of your urine stream. ? Leaking (dribbling) after urinating. ? Inability to pass urine. This needs immediate treatment. ? Inability to completely empty your bladder. ? Pain when you pass urine. This is more common if there is also an infection. ? Urinary tract infection (UTI). How is this diagnosed? This condition is diagnosed based on your medical history, a physical exam, and your symptoms. Tests will also be done, such as: ? A post-void bladder scan. This measures any amount of urine that may remain in your bladder after you finish urinating. ? A digital rectal exam. In a rectal exam, your health care provider checks your prostate by putting a lubricated, gloved finger into your rectum to feel the back of your prostate gland. This exam detects the size of your gland and any abnormal lumps or growths. ? An exam of your urine (urinalysis). ? A prostate specific antigen (PSA) screening. This is a blood test used to screen for prostate cancer. ? An ultrasound. This test uses sound waves to electronically produce a picture of your prostate gland. Your health care provider may refer you to a specialist in kidney and prostate diseases (urologist). How is this treated? Once symptoms begin, your health care provider will monitor your condition (active surveillance or watchful waiting). Treatment for this condition will depend on the severity of your condition. Treatment may include: ? Observation and yearly exams. This may be the only treatment needed if your condition and symptoms are mild. ? Medicines to relieve your symptoms, including: ? Medicines to shrink the prostate. ? Medicines to relax the muscle of the prostate. ? Surgery in severe cases. Surgery may include: ? Prostatectomy. In this procedure, the prostate tissue is removed completely through an open incision or with a laparoscope or robotics. ? Transurethral resection of the prostate (TURP). In this procedure, a tool is inserted through the opening at the tip of the penis (urethra). It is used to cut away tissue of the inner core of the prostate. The pieces are removed through the same opening of the penis. This removes the blockage. ? Transurethral incision (TUIP). In this procedure, small cuts are made in the prostate. This lessens the prostate's pressure on the urethra. ? Transurethral microwave thermotherapy (TUMT). This procedure uses microwaves to create heat. The heat destroys and removes a small amount of prostate tissue. ? Transurethral needle ablation (TUNA). This procedure uses radio frequencies to destroy and remove a small amount of prostate tissue. ? Interstitial laser coagulation (ILC). This procedure uses a laser to destroy and remove a small amount of prostate tissue. ? Transurethral electrovaporization (TUVP). This procedure uses electrodes to destroy and remove a small amount of prostate tissue. ? Prostatic urethral lift. This procedure inserts an implant to push the lobes of the prostate away from the urethra. Follow these instructions at home: ? Take igeg-wow-vtrnsdx and prescription medicines only as told by your health care provider. ? Monitor your symptoms for any changes. Contact your health care provider with any changes. ? Avoid drinking large amounts of liquid before going to bed or out in public. ? Avoid or reduce how much caffeine or alcohol you drink. ? Give yourself time when you urinate. ? Keep all follow-up visits as told by your health care provider. This is important. Contact a health care provider if: ? You have unexplained back pain. ? Your symptoms do not get better with treatment. ? You d (more content not included)... Normal [facility] Urine Cytology ([facility])on 05-09-2020 Method of Extraction Voided Normal [facility] Comment on above: Performed By: #### 1 [id number] ####[facility] [address] [place] [address] Number of Jars 1 Invalid Interpretation Code [facility] Comment on above: Performed By: #### 1 [id number] ####[facility] [address] [facility] [place] [address] Specimen Urine Normal [facility] Comment on above: Performed By: #### 1 [id number] ####[facility] [address] [facility] [place] [address] Type of Service Technical Only Normal [facility] Comment on above: Performed By: #### 1 [id number] ####[facility] [address] [facility] [place] [address] Urology Office/Clinic Noteon 03-09-2021 Urology Office/Clinic Note Chief Complaint 1 yr follow up 58-year-old. Microscopic hematuria history of elevated PSA. He has had a previous prostate biopsy in August 2016. That was negative. We have been following his PSA on a regular basis. Most recent PSA reviewed. We also has a persistence of microscopic hematuria. He has no voiding complaints at this time. [facility] Staff Carroll is a 66 y.o. male here for 1 yr follow up. Previous dx: BPH w/ urinary obstruction, Elevated PSA, Frequency of urination, microhematuria, Nocturia. S/P TRUS w/ BX done 08/25/2016. Current PSA is 7.45 done on 03/03/2021. Previous PSA 6.9 and 6.4. Dysuria: _Denies Incomplete bladder emptying: _Denies Hematuria: _Denies Frequency: _Mild- he is on hydrochlorothiazide Urgency: _Denies Nocturia: _3-4xs a night Stream: _Stream has weakness at times Leaking: _Denies Post void dripping: _Denies Wearing pads/ Depends: _Denies Urge incontinence: _Denies Stress incontinence: _Denies Incontinence without Sensory Awareness: _Denies Abdominal pain: _Denies Flank pain: _Denies Sexual complaints: _ History of Present Illness Reviewed UA and PSA. There have been no associated fever, chills, flank pain or blood in the urine. Pt. denies any pain/burning with urination at this time. Review of Systems PHQ Score Initial Depression Screen Score: 0 ROS - Provider Constitutional: denies weight loss, denies hot flashes. Eyes: denies eye problems. Gastrointestinal: denies nausea, denies vomiting. Cardiovascular: denies chest pain or angina. Integumentary: no dryness Musculoskeletal: denies musculoskeletal symptoms. ENMT: denies otolaryngeal symptoms. Respiratory: no shortness of breath. Heme/Lymph: denies easy bleeding tendency, denies easy bruising tendency. Psychiatric: no confusion, no anxiety. Genitourinary: denies dysuria, denies hematuria, denies discharge, denies urinary frequency, denies urinary hesitancy, denies nocturia, denies incontinence, denies genital sores, denies decreased libido, and denies erectile dysfunction. Physical Exam Vitals & Measurements HR: 77(Peripheral) BP: 120/79 HT: 177 cm HT: 177.0 cm WT: 119 kg WT: 119.0 kg BMI: 37.98 General Appearance: alert, no distress, well nourished, well developed male. Head: normocephalic . Eyes: normal orbit and globe. ENMT: normal examination of external ears. Chest: Lungs CTA, respirations non labored. Cardiovascular: regular rate and rhythm. Abdomen: soft, non distended, no tenderness, no mass or organomegaly, no hernia. Genitourinary: normal scrotum, normal testes, normal urethra, normal epididymis, normal vas deferens/spermatic cord. Flank Pain: none. Bladder: nonpalpable. Penis: normal shaft, normal glans. Prostate: normal prostate, estimated weight 50 gms, no hard nodule observed. Lymph Nodes: unremarkable palpation of the cervical area. Skin: warm, dry, no bruising. Psychiatric: cooperative, affect appropriate for age, normal judgement, euthymic mood. Assessment/Plan This patient has a history of an elevated PSA blood test result. His new PSA is 7.45 ng/mL. We will plan to repeat this blood test in April of this year and then review and possibly consider repeat biopsy. This is been discussed in detail with the patient today. Also noted is a persistence of microscopic hematuria. His CT scan with contrast, urine cytology and cystoscopy is planned. The procedure, risks, alternatives and potential complications have been discussed in detail. Preop antibiotics have been ordered. Informed consent has been obtained. 1. Elevated PSA (R97.20: Elevated prostate specific antigen [PSA]) Neg. bx in 2017. Current PSA drawn on 03/03/21 - 7.45 vs. 6.9 in 12/2019. Will have pt. obtain another level soon and will consider further testings based on the results. All questions/concerns were discussed. Pt. to call the office if heencounters any issues prior. Pt. acknowledges understanding. Ordered: PSA Free & Total Urnls Dip Stick Auto w/o Microscopy POC 49181 Urology Procedure Order 2. Microhematuria (R31.29: Other microscopic hematuria) UA today - small. Will send UA for FISH/Cyto. Pt. is to obtain a CT w/ contrast and will schedule cystoscopy. The risks and benefits have been discussed. The risks include bleeding, infection, and irritation of the bladder and urinary channel, among others. The patient, after being informed of procedural details and after questions have been answered, wishes to proceed. Full informed consent has been obtained. Will order Local anesthesia. ABX sent. Ordered: CT Abdomen/Pelvis w/ Contrast PSA Free & Total Urology Procedure Order 3. BPH with urinary obstruction (N40.1: Benign prostatic hyperplasia with lower urinary tract symptoms) Pt. is not on any BPH meds. at this time and is doing well overall w/ his urination w/ no bothersome symptoms. UA today shows no signs of infection. Ordered: PSA Free & Total Urnls Dip Stick Auto w/o Microscopy POC 14899 Urology (more content not included)... Normal [facility] Comment on above: Result Comment: Elec tronically Signed By: Aashish Barnes MD, Ruby Spann\.br\Date and Time Signed: 03/09/21 11:22 EDT\.br\Electronically Co-Signed By: Alexandra Villagomez MA\.br\Date and Time Co-Signed: 03/09/21 11:14 EDT Lab [facility] 03-04-2021 Lab Reports [id number]#[id number] D:127 Normal [facility] Encounters Encounter Date Encounter Type Care Provider Facility Start: 03-14-2023 End: 03-14-2023 ambulatory SHI PUGH Facility:[facility] Start: 03-14-2023 End: 03-14-2023 [facility] Shi Pugh MD Work Phone: Urology Comment on above: Other specified diso rders of kidney and ureter Start: 11-17-2022 ambulatory Shi puri MD Work Phone: Urology Comment on above: ct scan Start: 09-05-2022 End: 09-06-2022 ambulatory JUDIT HARMON Facility:[facility] Start: 02-18-2022 End: 02-18-2022 [facility] Shi Pugh MD Work Phone: Urology Comment on above: Other specified diso rders of kidney and ureter (Primary Dx) Start: 01-05-2022 ambulatory Shi puri MD Work Phone: Urology Comment on above: visit Start: 11-30-2021 Telephone encounter Shi Pugh MD Work Phone: Urology Comment on above: Outside Testing Start: 10-21-2021 End: 10-22-2021 ambulatory [facility]3] Facility: Start: 06-28-2021 ambulatory Radha Sawyer RN [facility] Comment on above: Information Plan of Treatment Date Care Activity Detail Author Start: 03-14-2024 End: 06-13-2024 CREATININE BLD CREATININE BLD Lab Routine Other specified disorders of kidney and ureter Expected: 03/14/2024 (Approximate), Expires: 06/13/2024 [facility] Work Phone: Comment on above: Expected: 03/14/2024 (Approximate), Expires: 06/13/2024 Start: 01-06-2023 Covid-19 Vaccine ( season) Covid-19 Vaccine ( season) [facility] Start: 01-06-2023 Influenza vaccination [facility] Start: 11-04-2022 End: 01-04-2023 CREATININE BLD CREATININE BLD Lab Routine Other specified disorders of kidney and ureter Expected: 11/04/2022, Expires: 01/04/2023 [facility] Work Phone: Comment on above: Expected: 11/04/2022 , Expires: 01/04/2023 Start: 05-08-2022 ADVANCE DIRECTIVE DISCUSSION ADVANCE DIRECTIVE DISCUSSION [facility] Start: 05-08-2022 DEPRESSION ASSESSMENT DEPRESSION ASS ESSMENT [facility] Start: 01-06-2022 Influenza vaccination INFLUENZA (#1) [facility] Start: 10-24-2021 COVID-19 VACCINE (4 - Booster for Pfizer series) COVID-19 VACCINE (4 - Booster for Pfizer series) [facility] Start: 10-24-2021 COVID-19 VACCINE (4 - Pfizer series) COVID-19 VACCINE (4 - Pfizer series) [facility] Start: 07-15-2021 COVID-19 VACCINE (3 - Booster for Pfizer series) COVID-19 VACCINE (3 - Booster for Pfizer series) [facility] Start: 05-08-2021 ADVANCE DIRECTIVE DISCUSSION ADVANCE DIRECTIVE DISCUSSION [facility] Start: 05-08-2021 DEPRESSION ASSESSMENT DEPRESSION ASS ESSMENT [facility] Start: 01-06-2021 Influenza vaccination INFLUENZA (#1) [facility] Start: 2018 Pneumococcal Vaccine : 65+ (1 - PCV) Pneumococcal Vaccine: 65+ (1 - PCV) [facility] Start: 2018 PNEUMOCOCCAL: 65+ (1 - PCV) PNEUMOCOCCAL: 65+ (1 - PCV) [facility] Start: 2018 PNEUMOVAX AGE 65 AND OVER WITH 5YR LOOKBACK (#1) PNEUMOVAX AGE 65 AND OVER WITH 5YR LOOKBACK (#1) [facility] Start: 2013 RSV Vaccine (1 - 1-d ose 60+ series) RSV Vaccine (1 - 1-dose 60+ series) [facility] Start: 02-07-2008 PROSTATE CANCER SCREENING DISCUSSION PROSTATE CANCER SCREENING DISCUSSION [facility] Start: 2003 SHINGRIX VACCINE (1 of 2) SHINGRIX VACCINE (1 of 2) [facility] Start: 1998 COLOGUARD (FIT-DNA) COLOGUARD (FIT-D NA) [facility] Start: 1998 Colonoscopy COLONOSCOPY [facility] Start: 1998 COLORECTAL CANCER SCREENING COLORECTAL CANCER SCREENING [facility] Start: [address] COLONOGRAPHY [facility] Start: 1998 DIABETES SCREEN DIABETES SCREEN [facility] Start: 1998 Diabetes Screening Diabetes Screenin g [facility] Start: 1998 FECAL OCCULT BLOOD FECAL OCCULT BLOO D [facility] Start: 1998 SIGMOIDOSCOPY SIGMOIDOSCOPY [facility] Start: 02-07-1988 Lipid 1996 panel - S bayron or Plasma Lipid Screening [facility] Start: 02-07-1988 LIPID SCREEN LIPID SCREEN [facility] Start: 02-07-1972 Urine microalbumin profile [facility] Start: 1971 HEPATITIS C SCREENING HEPATITIS C SC REENING [facility] Start: 1965 Adult depression screening assessment DEPRESSION SCREENING [facility] Start: 1958 COVID-19 VACCINE (1) COVID-19 VACCIN E (1) [facility] End: 03-20-2023 Ct abdomen w/contrast material CT ABDOMEN W IVCON Radiology Routine Other specified disorders of kidney and ureter 1 Occurrences starting 02/19/2022 until 03/20/2023 [facility] Work Phone: Comment on above: 1 Occurrences starti ng 02/19/2022 until 03/20/2023 End: 04-12-2024 Ct abdomen w/contrast material CT ABDOMEN W IVCON Radiology Routine Other specified disorders of kidney and ureter 1 Occurrences starting 03/14/2023 until 04/12/2024 [facility] Work Phone: Comment on above: 1 Occurrences starti ng 03/14/2023 until 04/12/2024 [facility] Payers Date Payer Category Payer Medicare MEDICARE MEDICAR E A AND B [id number] 2018-Present [phone] [place] [address] Medicare [id number] 2018 Medicare MEDICARE MEDICAR E A AND B [id number] 2018-Present [phone] [place] [address] Medicare [id number] 2018 Unknown [employer] D [id number] 2018-Present [phone] [address] [address] [place] [id number] Indemnity [id number] 2018 Unknown [employer] D [id number] 2018-Present [phone] [address] [address] [place] [id number] Indemnity [id number] 1959 Medicare [id number] 1959 Unknown [id number] 1953 Unknown [id number] 1953 Unknown [id number] Social History Date Type Detail Facility Tobacco smoking stat [facility] Tobacco smoking consumption unknown [facility] Start: 1955 Sex Assigned At Not on file [facility] Start: 05-20-2022 End: 03-14-2023 History of Social function [facility] Start: 05-20-2022 End: 03-14-2023 Area Deprivation Index [facility] National Score (1-10 0), lower number is lower risk 70 [facility] Progress note 03-14-2023 Note Date & Type Note Facility 03-14-2023 Note HNO ID: [id number] Author: SHI PUGH MD Service: ? Author Type: Physician Type: Progress Notes Filed: 06/01/2023 10:19 Note Text: [facility] [place] This visit was conducted as a virtual visit. CC Small renal mass 68 yo male followed for small renal mass: 2.4 cm anterior left kidney mass Last seen 02/18/[address] from 03/2022 ~ 2.4 cm mass anterior left kidney Recent CT 12/12/2022: : Stable size of left renal mass - 2.3 cm Assessment and plan: 1) Left renal mass - stable in size for 1 year - Continue MD Shi Palacios MD [facility] History of Present illness Narrative 03-14-2023 Shi Pugh MD - 03/14/2023 2:31 PM EST Note Date & Type Note Facility 03-14-2023 History of Presen t illness Narrative Images from the original note were not included. [facility] [place] CC Small renal mass 68 yo male followed for small renal mass: 2.4 cm anterior left kidney mass Last seen 02/18/[address] from 03/2022 ~ 2.4 cm mass anterior left kidney Recent CT 12/12/2022: : Stable size of left renal mass - 2.3 cm Assessment and plan: 1) Left renal mass - stable in size for 1 year - Continue MD Shi Palacios MD documented in this encounter [facility] History of Present illness Narrative 02-18-2022 Shi Pugh MD - 02/18/2022 9:09 AM EDT Note Date & Type Note Facility 02-18-2022 History of Presen t illness Narrative Images from the original note were not included[facility] [place] 67 [facility] Followed for small renal mass Last discussion- Jun 2021- recommended CT abdomen for surveillance Virtual visit today to discuss imaging UROL Staff Reviewed imaging with patient and Index CT from 03/2022 ~ 2.4 cm mass anterior left kidney Follow up imaging October 2021 -no change in left renal mass Impression/Plan: Small renal mass. Stable over 7 months Recommend continued radiographic surveillance Plan for CT imaging October 2022-[facility] He will continue PSA follow up with local urologist Dr. Zendejas. Shi Pugh MD documented in this encounter [facility] Note 11-30-2021 Telephone Encounter - Aditi Singh - 11/30/2021 11:35 AM EDT Note Date & Type Note Facility 11-30-2021 Miscellaneous Notes Received outside imaging disk in mail. Uploaded in chart and given to Vi for review. documented in this encounter [facility] Note 06-28-2021 Telephone Encounter - Radha Sawyer RN - 06/28/2021 5:02 PM EST Note Date & Type Note Facility 06-28-2021 Miscellaneous Notes calling to verify name of Urologist patient is seeing on 06/30/21.. denies any new or worsening symptoms of which a provider is not aware:Yes. documented in this encounter [facility] History and physical note 04-15-2021 Note Date & Type Note Facility 04-15-2021 Note [id number] [facility] Clinical Note 04-15-2021 Note Date & Type Note Facility 04-15-2021 Note Cystoscopy ? Voiding after the procedure: there may be some pain, burning, urgency, frequency and blood tinged urine following the procedure. These symptoms usually resolve within 2-5 days. Drink the amount of fluid it takes to keep the urine pink to yellow or clear in color. Drinking enough water and fluids will help to ease any discomfort after your procedure. ? If you are having problems that seem out of the ordinary, please call. ? If unable to contact your physician and you feel it is an emergency, go to the nearest emergency room or call 911 ? Diet ? you may resume your normal diet. ? Activity ? you may resume your normal activities ? Call if you have a fever over 100 degrees. [facility] Evaluation note Note Date & Type Note Facility Evaluation note Diagnosis Other specified disorders of kidney and ureter- Primary documented in this encounter [facility] Evaluation note Note Date & Type Note Facility Evaluation note Diagnosis Other specified disorders of kidney and ureter documented in this encounter [facility] Summary Purpose Family History No Family History Records FoundNo Family History Records FoundNo Family History Records Found Advance Directives No Advanced Directives Records FoundNo Advanced Directives Records FoundNo Advanced Directives Records Found Reason for Referral Specialty Diagnoses / Procedures Referred By Contac t Referred To Contact CT IMAGING Diagnoses Other specified disorders of kidney and ureter Procedures CT ABDOMEN W IVCON CT ABDOMEN W/CONTRAST Shi Pugh MD [address] [place] [address] Ct Imaging Referral ID Status Reason Start Date Expiration Date Visits Requested Visits Authorized [id number] Pending Review Auto-Generat ed Referral 2 03/20/2023 1 1 Specialty Diagnoses / Procedures Referred By Contac t Referred To Contact CT IMAGING Diagnoses Other specified disorders of kidney and ureter Procedures CT ABDOMEN W IVCON CT ABDOMEN W/CONTRAST Shi Pugh MD [address] [place] [address] Ct Imaging [place] [id number] Referral ID Status Reason Start Date Expiration Date Visits Requested Visits Authorized [id number] Pending Review Auto-Generat ed Referral 03/14/2023 04/12/2024 1 1 Additional Source Comments Source Comments (unrecognize d section and content) In the event this informatio n is protected by the Federal Confidentiality of Alcohol and Drug Abuse Patient Records regulations: The Federal rules restrict any use of the information to criminally investigate or prosecute any alcohol or drug abuse patient.[facility] the event this information is protected by the Federal Confidentiality of Alcohol and Drug Abuse Patient Records regulations: The Federal rules restrict any use of the information to criminally investigate or prosecute any alcohol or drug abuse patient.[facility] the event this information is protected by the Federal Confidentiality of Alcohol and Drug Abuse Patient Records regulations: The Federal rules restrict any use of the information to criminally investigate or prosecute any alcohol or drug abuse patient.[facility] the event this information is protected by the Federal Confidentiality of Alcohol and Drug Abuse Patient Records regulations: The Federal rules restrict any use of the information to criminally investigate or prosecute any alcohol or drug abuse patient.[facility] the event this information is protected by the Federal Confidentiality of Alcohol and Drug Abuse Patient Records regulations: The Federal rules restrict any use of the information to criminally investigate or prosecute any alcohol or drug abuse patient.[facility] the event this information is protected by the Federal Confidentiality of Alcohol and Drug Abuse Patient Records regulations: The Federal rules restrict any use of the information to criminally investigate or prosecute any alcohol or drug abuse patient.[facility] Reason for Visit (unrecogniz ed section and content) Reason Comments Information Reason Comments Outside Testing Reason Comments Renal Cancer Reason Comments Follow Up (unrecognized sect ion and content) No Status Records FoundNo Status Records FoundNo Status Records Found INFORMATION SOURCE (unrecogn ized section and content) DATE CREATED AUTHOR 10/28/2021 [facility] DATE CREATED AUTHOR AUTHOR'S ORGANIZ ATION 09/09/2022 Bogdan Moore [facility] DATE CREATED AUTHOR AUTHOR'S ORGANIZ ATION 06/02/2023 [facility] FOR RECORDS PERTAINING TO PATIENTS WHO ARE OR HAVE BEEN ENROLLED IN A CHEMICAL DEPENDENCY/SUBSTANCEABUSE PROGRAM, SOME INFORMATION MAY BE OMITTED. This clinical summary was aggregated from multiple sources. Caution should be exercised in using it in the provision of clinical care. This summary normalizes information from multiple sources, and as a consequence, information in this document may materially change the coding, format and clinical context of patient data. In addition, data may be omitted in some cases. CLINICAL DECISIONS SHOULD BE BASED ON THE PRIMARY CLINICAL RECORDS. [employer] [facility]. provides no warranty or guarantee of the accuracy or completeness of information in this document.
[2024-09-24 11:10] LABS: Basophils Absolute Auto 0.1 10^3/uL (0.0-0.1); Basophils Percent Auto 0.8 % (0.2-2.0); Eosinophils Absolute Auto 0.2 10^3/uL (0.0-0.7); Hematocrit 52.3 % (42.0-54.0); Hemoglobin 18.1 g/dL (14.0-18.0); Immature Granulocytes Abs Auto 0.01 10^3/uL (0.00-0.03); Immature Granulocytes Pct Auto 0.2 % (0.0-0.5); Lymphocytes Absolute Auto 1.4 10^3/uL (1.2-3.8); Lymphocytes Percent Auto 22.3 % (20.5-60.0); Mean Corpuscular HGB Conc 34.6 g/dL (29.9-35.2); Mean Corpuscular Volume 92.6 fL (80.0-94.0); Mean Platelet Volume 9.7 fL (9.5-13.5); Monocytes Absolute Auto 0.5 10^3/uL (0.3-0.8); Monocytes Percent Auto 7.4 % (1.7-12.0); Neutrophils Absolute Auto 4.2 10^3/uL (1.4-6.5); Neutrophils Percent Auto 66.3 % (43.0-75.0); Platelet Count 207 10^3/uL (150-450); Red Blood Count 5.65 10^6/uL (4.70-6.10); Red Cell Distribution Width 12.6 % (11.0-15.0); White Blood Count 6.4 10^3/uL (4.0-11.0)
[2024-09-24 11:50] LABS: Alanine Aminotransferase 32 U/L (16-63); Albumin Level 3.7 g/dL (3.4-5.0); Alkaline Phosphatase 118 U/L (46-116); Aspartate Amino Transferase 19 U/L (15-37); BUN Creatinine Ratio 16.7; Bilirubin Total 0.7 mg/dL (0.2-1.0); Calcium 10.3 mg/dL (8.5-10.1); Carbon Dioxide 32.8 mmol/L (21.0-32.0); Chloride 101 mmol/L (98-107); Cholesterol 149 mg/dL (<=200); Estimated GFR (African America 59 (>=60 mL/min/1.73m^2); Estimated GFR (Non-African Ame 48 (>=60 mL/min/1.73m^2); Free T3 3.07 pg/mL (2.18-3.98); Globulin 3.8 g/dL; Glucose 164 mg/dL (74-106); HDL Cholesterol 37 mg/dL (40-60); Potassium 4.8 mmol/L (3.5-5.1); Sodium 140 mmol/L (136-145); Thyroid Stimulating Hormone 2.247 uIU/mL (0.358-3.740); Total Protein 7.5 g/dL (6.4-8.2); Triglycerides 140 mg/dL (<=150)
== END 2024-09-24 10:39 | disposition home or self-care (01) ==
LOC: LAB 10:42
PROVIDERS: PCP Nurse Practitioner Family; Visit Provider Nurse Practitioner Family
DX: E78.5 Hyperlipidemia, unspecified (principal); E03.9 Hypothyroidism, unspecified; I10 Essential (primary) hypertension; R53.83 Other fatigue
CPT/HCPCS: 36415; 80053; 80061; 84436; 84443; 84481; 85025